=== PATIENT | female | born 1945 | race Caucasian/White ===

== ENCOUNTER → 2019-10-05 | Outpatient (CLI) | payer SELFPAY ==
[~2019-10-05] MED LIST: ASPI81TA26 PO; ENAL10TA10 PO; GABA-843 PO; HYDR25TAB PO; IBUP200T45 PO; ISOVUE-300 61% 50ML VIAL As Ordered ONE; LIDOCAINE 1% MDV 20ML VIAL As Ordered ONE; MIDAZOLAM INJ 2MG/2ML VIAL (J2250 PER 1MG) As Ordered ONE; NITR4TASL SL; OMEP1CAP73 PO; PLAV1TAB2 PO; ROPI0.5T3 PO; fentaNYL 100 MCG/2 ML INJECTION (J3010) As Ordered ONE; hydrALAZINE 20MG/ML 1ML VIAL (J0360 PER 20MG) As Ordered ONE
--- NOTE | 2019-10-05 10:00 | ROOPDOC ---
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 Ultrasound-guided access left common femoral artery 2. Aortoiliofemoral arteriogram 3. Selection right common femoral and superficial femoral artery and right lower extremity arteriogram 4. Selection popliteal artery and runoff 5. 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 Arteriogram distal peroneal artery selection 7. Angioplasty right superficial femoral artery with 6 x 200 Dingle balloon 8. Angioplasty right peroneal artery with 2.5 x 220 Kwan balloon 9. Angioplasty right anterior tibial artery with 2.5 x 220 Kwan balloon 10. Attempt to cross chronic total occlusion right posterior tibial artery, aborted 11. Completion arteriograms 12. Mynx closure left common femoral artery SURGEON: Sarthak Hirsch MD ANESTHESIA: Local anesthesia 4 cc lidocaine. Moderate intravenous conscious sedation was supervised by Dr. Hirsch. The patient was independently monitored by registered nurse assigned to the Department of radiology using automated blood pressure, EKG, and pulse oximetry. The detailed sedation record is permanently stored in the hospital information system. The following is a brief sedation record: Start time 07:54, stop time 09:19, Versed 1 mg IV, fentanyl 50 g IV, hydralazine 20 mg IV, heparin 5000 units IV. INDICATION FOR PROCEDURE: This is a very pleasant 74-year-old patient with claudication and a nonhealing wound on her right foot with monophasic tibial flow on her arterial duplex. Risks benefits and alternatives to a right lower extremity arteriogram and potential intervention were explained to the patient. She is agreeable to proceed. Informed consent was obtained. INTERPRETATION: 1. The distal aorta and the common iliac arteries, hypogastric arteries, external iliac arteries are widely patent bilaterally. Mild plaque and ectasia are noted but not flow-limiting. 2. Right common femoral artery has some calcification but not flow-limiting, no significant stenosis noted as good runoff through the profunda and the superficial femoral artery. The superficial femoral artery has some heavy plaque with intermittent 30-60% stenosis through the proximal mid and distal portions. There are a few places where there is focal plaque in the 70-80% range. Distal to this, the popliteal artery is ectatic and calcified but patent. No significant stenosis is noted. Very sluggish flow was noted through the arteries proximal to distal, possibly due to cardiac insufficiency. 3. The patient has severe tibial disease. Her anterior tibial artery occludes 1 cm from its origin and reconstitutes from collaterals from the peroneal artery at the dorsal pedis at the ankle and foot. The posterior tibial artery occludes 3 cm from its origin and reconstitutes at the ankle from a large collateral medial to the pechanga artery that connects to the peroneal artery which then collateralizes over to the distal posterior tibial artery. The peroneal artery is the only intact runoff, and supplies collaterals to the dorsal pedis artery and posterior tibial artery at the ankle and foot, but it has heavy stenosis at the tibioperoneal trunk and the proximal 3-4 cm of the artery. Some areas appeared nearly occluded. 4. After angioplasty of the superficial femoral artery, there is widely patent flow, no dissection noted, no residual stenosis greater than 10% noted, no extravasation or embolization noted. 5. After angioplasty of the tibioperoneal trunk and the peroneal artery, there is some improvement in flow but due to heavy calcified plaque it is still quite ectatic, especially proximal. The collaterals at the ankle to the DP and PT arteries leading off into the foot are still patent after angioplasty. 6. After crossing the chronic total occlusion in the right anterior tibial artery and angioplasty multiple times along the length of the artery, we did not note good antegrade flow through the vessel. Some of this may be due to spasm in the dorsal pedis artery into the foot. If we placed the catheter down to the dorsal pedis artery and injected contrast retrograde, the entire vessel is patent after angioplasty. Hopefully, the flow will improve with relaxation of the pedal vessels. No extravasation or embolization were noted, no dissection. 7. We attempted to cross the chronic total occlusion of the right posterior tibial artery, but there is a large collateral coming off at the occlusion, and the wire continue to select the collateral rather than to cross the occlusion. This was aborted. No extravasation was noted. Flow through the collateral was preserved. REPORT OF OPERATION: Patient was brought to the angiographic suite in stable condition. Her bilateral groins were prepped and draped in sterile fashion. A timeout was performed. Sedation was administered without complication. After sed ation, her blood pressure remained elevated and she received a total of 2 doses of hydralazine to treat her hypertension. At the beginning of the case, systolic blood pressure exceeded 200 mmHg, after the first dose of hydralazine and sedation, it decreased to 175 mmHg, after the second dose of hydralazine it was less than 140 mmHg. She remained hemodynamically stable throughout the case. Her left groin was anesthetized with local anesthesia and a microneedle was used to access her left common femoral artery over the femoral head under ultrasound guidance. A wire was passed through this access and the needle was removed. A 4 Turkmen sheath was placed and flushed with saline. Through this access of Glidewire and a Omni Flush catheter were advanced under fluoroscopic guidance in the distal aorta. Aortoiliofemoral arteriograms were performed. Please see interpretation above. We then went up and over the bifurcation with Glidewire and the catheter and selected the right common femoral artery and superficial femoral artery. Following this, right lower extremity arteriograms were performed. The sheath was exchanged for 6 Turkmen 45 cm destination sheath over the wire under fluoroscopic guidance. The sheath was flushed with saline. We then crossed the wire through the superficial femoral artery and the popliteal artery and angioplasty to long length of the artery with a 6 x 200 Dingle balloon for three-minute inflations. Following this, there is widely patent flow through the SFA with no dissection or significant residual stenosis, and I did not feel a stent was needed at this time. We then exchanged the wire for an O18 Glidewire advantage and utilized an angled catheter to navigate down to the tibial vessels. It was hard to cross into either the posterior tibial or ant erior tibial, so we initially treated the peroneal artery. The wire was advanced distally with the aid of aerobic on catheter, adequate contrast injection confirmed a in the true lumen. We then angioplastied with 2.5 x 220 balloon for three-minute inflations along the length of the vessel. Following this there was definitely improvement in flow, especially proximally, but the vessel was heavily calcified and ectatic. We then navigated the wire into the posterior tibial artery after some effort. We were able to get down to the occlusion, but we were not able to cross it as there is a large collateral coming off right at the end of the patent artery, and the wire continue to select this despite our best efforts to stay within the true lumen of the occlusion. This was aborted. No extravasation was noted. Collateral was still patent after attempts were made. We then navigated the wire into the origin of the anterior tibial artery and utilized aerobic on to cross all the way to the distal artery. This was also extremely challenging to do calcification and very chronic occlusion. We eventually were able to navigate the wire into the dorsal pedis artery. Contrast injection confirmed we were in the true lumen. We then advanced a 2.5 x 220 Kwan balloon over the wire into three-minute inflations along the length of the vessel. Following this, there was still a lack of antegrade flow through the vessel and additional three-minute inflations were done approximately mid distally into the dorsal pedis artery. After extensive repeat angioplasty, we still did not have good antegrade flow through the artery. Therefore we advanced the catheter into the distal anterior tibial artery and contrast injection was performed well retracting the catheter in order to show that there was patency throughout the vessel. There is some spasm in the dorsal pedis artery which should relax with a bit of time. Hopefully this will improve her flow. This concluded her procedure. We exchange the wire for an O35 Glidewire and exchange the sheath for short 6 Turkmen sheath. Sheath was flushed with saline and a Mynx closure device was deployed under fluoroscopic guidance with good hemostasis. Pressure was held for 5 minutes and sterile dressings were applied. The patient was then taken to recovery in stable condition. She tolerated the sedation in the procedure well. ESTIMATED BLOOD LOSS: Approximately 5 mL. COMPLICATIONS: None. PLAN: It is okay to resume home diet medications, and patient should resume her Plavix tomorrow. We will see the patient back in a week to check her left groin access site in her right lower extremity perfusion. We are hopeful that the improvement in her blood flow will be enough to help her heal her toe and keep it healed. We appreciate the opportunity to participate in the care of this patient. SARTHAK HIRSCH MD Oct 05, 2019 10:00
[2019-10-05 13:00] VITALS: BP 147/72
== END ==
LOC: M IRPRO 06:32
PROVIDERS: ATTEND Surgery Vascular Surgery
DX: I70.211 Atherosclerosis of native arteries of extremities with intermittent claudication, right leg (principal); I70.235 Atherosclerosis of native arteries of right leg with ulceration of other part of foot; I70.92 Chronic total occlusion of artery of the extremities; L03.031 Cellulitis of right toe; Z79.01 Long term (current) use of anticoagulants; Z79.82 Long term (current) use of aspirin; Z79.899 Other long term (current) drug therapy
CPT/HCPCS: 37224; 37228; 37232; 75710; 99152; 99153; C1725; C1729; C1760; C1769; C1887; C1894; J0360; J1644; J2250; J3010; Q9967

== ENCOUNTER → 2019-11-22 | Outpatient (CLI) | payer MEDICARE ==
[~2019-11-22] MED LIST changes: -ISOVUE-300 61% 50ML VIAL As Ordered ONE; -LIDOCAINE 1% MDV 20ML VIAL As Ordered ONE; -MIDAZOLAM INJ 2MG/2ML VIAL (J2250 PER 1MG) As Ordered ONE; -fentaNYL 100 MCG/2 ML INJECTION (J3010) As Ordered ONE; -hydrALAZINE 20MG/ML 1ML VIAL (J0360 PER 20MG) As Ordered ONE
--- NOTE | 2019-12-20 10:59 | REP ---
BILATERAL LOWER EXTREMITY ARTERIAL ULTRASOUND: CLINICAL: Symptoms related to peripheral vascular disease and claudication. TECHNIQUE: Real time, stokes scale and color evaluation using linear high frequency transducer. FINDINGS: Extensive mixed partially calcified atheromatous plaquing noted bilaterally throughout the lower extremities. The right ankle brachial index equals 0.68. The left ankle brachial index could not be obtained due to incompressibility. The right lower extremity demonstrates primarily biphasic arterial wave patterns and decreased velocities. There is evidence for a few focal areas of occlusion involving the distal right posterior tibial artery with subsequent areas of revascularization as well as area of occlusion involving the distal right anterior tibial artery, again with associated revascularization noted. The left lower extremity demonstrates occlusion in the distal posterior tibial artery with subsequent revascularization. IMPRESSION: Significant atherosclerotic changes bilaterally with few short segments of occlusion and subsequent revascularization as described above. Please refer to worksheet for detailed velocities. MTDD
== END ==
LOC: M RAD 11:11
PROVIDERS: ATTEND Physician Assistant
DX: I70.213 Atherosclerosis of native arteries of extremities with intermittent claudication, bilateral legs (principal)